=== PATIENT | female | born 1980 | race Caucasian/White ===

== ENCOUNTER 2020-10-30 04:52 | Emergency (ER) | payer OTHER ==
[2020-10-30 05:51] LABS: HEMOGLOBIN 16.7 gm/dl (12.3-15.3); RED BLOOD COUNT 5.83 M/UL (4.00-5.10); WHITE BLOOD COUNT 4.9 K/UL (4.5-11.0)
[2020-10-30 06:11] LABS: BUN/CREATININE RATIO 13 (0-10)
[2020-10-30] MEDS ORDERED: ZOFRAN ODT 4 MG4 MG GT (06:59)
[2020-10-30] MEDS ORDERED: PROTONIX40 MG PO (06:59)
[2020-10-31 13:14] LABS: HBSAG SCREEN Negative (Negative); HEP A AB, IGM Negative (Negative); HEP B CORE AB, IGM Negative (Negative); HEP C VIRUS AB <0.1 (0.0-0.9)
== END 2020-10-30 07:30 | disposition home or self-care (01) ==
LOC: ER1 04:52
PROVIDERS: Family Medicine
DX: R10.9 Unspecified abdominal pain (principal); Z90.89 Acquired absence of other organs; Z90.710 Acquired absence of both cervix and uterus
CPT/HCPCS: 80053; 80074; 81001; 83690; 85025; 96374; 96375; 99284; C9113; J2405; J7030